=== PATIENT | female | born 1970 | race Two or more races ===

== ENCOUNTER → 2018-09-28 | Day surgery (SDC) | payer OTHER ==
--- NOTE | 2018-09-29 11:48 | PATH ---
Surgical Pathology Report Patient Name: OLESYA MARISCAL [facility]. Rec. #: [id number] /Age/Gender: 1970 (Age: 48) / F Account: [id number] Location: RADIOLOGY [facility] Taken: 09/28/2018 Received: 09/28/2018 Reported: 09/29/2018 Physicians: Stacey Cali CNM Specimen(s) Received RIGHT BREAST CORE BIOPSY Clinical History Nonpalpable lesion Mammographic findings: probably benign Ultrasound findings: probably benign, suspicious 1.55 cm Final Diagnosis BREAST, RIGHT, 1:30, ULTRASOUND GUIDED CORE BIOPSY: FIBROADENOMA. Electronically Signed Sona Talbot M.D. Gross Description Received in formalin labeled "right breast 1:30," are 4 hall-yellow, cylindrical portions of fibroadipose tissue ranging from 0.4-0.8 cm in length and averaging 0.1 cm in diameter. The specimens are submitted in toto in one cassette. Time to formalin fixation: Less than one minute Total formalin fixation time: Approximately 6 hours. /09/28/2018 saudi/09/28/2018
== END | disposition home or self-care (01) ==
LOC: JRADUS-SUR 11:40
PROVIDERS: ATTEND Midwife
PROC: 0HBT3ZX Excision of Right Breast, Percutaneous Approach, Diagnostic (ICD-10-PCS; principal; 2018-09-28)
DX: D24.1 Benign neoplasm of right breast (principal)
CPT/HCPCS: 19083; 77065-TC; 87899; 88305-TC; A4648